=== PATIENT | male | born 1995 | race Two or more races ===

== ENCOUNTER 2024-04-25 16:05 | Inpatient (IN) | payer MEDICAID, OTHER ==
[~2024-04-25] VITALS: Ht 177.8 cm; Wt 65.7 kg
--- NOTE | 2024-04-25 16:21 | ED.PDOC ---
History of Present Illness HPI Comments 29-year-old male with no reported PMHx brought in by EMS presents with a chief complaint of dog bites to left lower leg x 1 hour ago. Per EMS, patient was attempting to put his neighbors dogs back into their yard when he was attacked by 5 of them. Patient was complaining of 10/10 left lower calf pain and was given 50mcg Fentanyl x 2 by EMS en route. Patient is still reporting pain despite the Fentanyl. Patient is currently hypotensive on arrival at 117/72. Patient has wounds bandaged and cleaned up from EMS. Chief Complaint: Animal Bite Time Seen by MD: 16:05 Reviewed Notes: Medications, Allergies Allergies: Coded Allergies: NO KNOWN ALLERGIES (Unverified , 04/25/24) Information Source: Emergency Med Personnel Mode of Arrival: EMS Severity: Moderate Timing: Minutes Duration: Since onset Prehospital treatment: Treatment (WOUND CLEANED AND BANDAGED) Past Medical History PAST MEDICAL HISTORY: Denies Surgical History: Denies all surgeries Family History Family History: Reviewed,noncontributory to illness Social History Smoker: Non-Smoker Alcohol: Denies ETOH Use Drugs: Denies Drug Use Lives In: Home Constitutional: denies: chills, diaphoresis, fatigue, fever, malaise, sweats, weakness, others EENTM: denies: blurred vision, double vision, ear bleeding, ear discharge, ear drainage, ear pain, ear ringing, eye pain, eye redness, hearing loss, mouth pain, mouth swelling, nasal discharge, nose bleeding, nose congestion, nose pain, photophobia, tearing, throat pain, throat swelling, voice changes, others Respiratory: denies: cough, hemoptysis, orthopnea, SOB at rest, shortness of breath, SOB with excertion, stridor, wheezing, others Cardiovascular: denies: chest pain, dizzy spells, diaphoresis, Dyspnea on exertion, edema, irregular heart beat, left arm pain, lightheadedness, palpitations, PND, syncope, others Gastrointestinal: denies: abdomen distended, abdominal pain, blood streaked bowels, constipated, diarrhea, dysphagia, difficulty swallowing, hematemesis, melena, nausea, poor appetite, poor fluid intake, rectal bleeding, rectal pain, vomiting, others Genitourinary: denies: burning, dysuria, flank pain, frequency, hematuria, incontinence, penile discharge, penile sore, pain, testicle pain, testicle swelling, urgency, others Neurological: denies: dizziness, fainting, headache, left sided numbness, left sided weakness, numbness, paresthesia, pre-existing deficit, right sided numbness, right sided weakness, seizure, speech problems, tingling, tremors, weakness, others Musculoskeletal: denies: back pain, gout, joint pain, joint swelling, muscle pain, muscle stiffness, neck pain, others Integumetry: reports: laceration, wounds; denies: bruises, change in color, change in hair/nails, dryness, lesions, lumps, rash, others Allergic/Immunocompromised: denies: Difficulty Healing, Frequent Infections, Hives, Itching, others Hematologic/Lymphatic: denies: anemia, blood clots, easy bleeding, easy bruis ing, swollen glands, others Endocrine: denies: excessive hunger, excessive sweating, excessive thirst, exc essive urination, flushing, intolerance to cold, intolerance to heat, unexplained weight gain, unexplained weight loss, others Psychiatric: denies: anxiety, bipolar disorder, depression, hopeless, panic disorder, schizophrenia, sleepless, suicidal, others All Other Systems: Reviewed and Negative Physical Exam General Appearance: Severe Distress, Thin HEENT: NOT DONE Neck: NOT DONE Respiratory: Chest Non-Tender, Decreased Breath Sounds, Lungs Clear, No Accessory Muscle Use Cardiovascular: No Murmur, No Gallop, Normal Peripheral Pulses, Regular Rate/Rhythm Breast Exam: Deferred Gastrointestinal: Non Tender, Soft Genitalia: Deferred Pelvic: Deferred Rectal: Deferred Extremities: Tender, Other (ANIMAL BITES TO LEFT LOWER CALF) Neurologic: Alert, Normal Affect, No Sensory Deficits Cerebellar Function: NOT DONE Reflexes: NOT DONE Skin: Dry, Lacerations Lymphatic: No Adenopathy Was a procedure done? Was a procedure done?: No Differential Dx Considerations may include: Fracture, foreign body retention, dog bite, cellulitis X-Ray, Labs, Meds, VS Vital Signs Date Time Temp Pulse Resp B/P (MAP) Pulse Ox O2 Delivery O2 Flow Rate FiO2 04/25/24 17:41 98.4 96 22 111/69 (83) 95 98.4 04/25/24 17:12 93 19 98/63 04/25/24 16:42 93 22 116/72 04/25/24 16:11 98.3 102 22 117/72 (87) 96 Lab Test 04/25/24 16:38 Range/Units White Blood Count 13.5 H 4.4-10.8 10^3/uL Red Blood Count 4.91 4.5-5.90 10^6/uL Hemoglobin 15.2 13.5-17.5 g/dL Hematocrit 46.6 41.0-53.0 % Mean Corpuscular Volume 94.9 80.0-100.0 fL Mean Corpuscular Hemoglobin 30.9 28.0-32.0 pg Mean Corpuscular Hemoglobin Concent 32.6 32.0-36.0 g/dL Red Cell Distribution Width 13.3 11.8-14.3 % Platelet Count 288 140-450 10^3/uL Mean Platelet Volume 8.3 6.9-10.8 fL Neutrophils (%) (Auto) 46.4 37.0-80.0 % Lymphocytes (%) (Auto) 44.1 10.0-50.0 % Monocytes (%) (Auto) 7.4 0.0-12.0 % Eosinophils (%) (Auto) 1.7 0.0-7.0 % Basophils (%) (Auto) 0.4 0.0-2.0 % Neutrophils # (Auto) 6.3 1.6-8.6 10 ^3/uL Lymphocytes # (Auto) 5.9 H 0.4-5.4 10 ^3/uL Monocytes # (Auto) 1.0 0-1.3 10 ^3/uL Eosinophils # (Auto) 0.2 0-0.8 10 ^3/uL Basophils # (Auto) 0.1 0-0.2 10 ^3/uL Nucleated Red Blood Cells 0.2 % Sodium Level 142 136-145 mmol/L Potassium Level 3.8 3.5-5.1 mmol/L Chloride Level 108 H 98-107 mmol/L Carbon Dioxide Level 18 L 20-31 mmol/L Anion Gap 16 H 5-15 Blood Urea Nitrogen 12 9-23 mg/dL Creatinine 1.29 0.700-1.30 mg/dL Glomerular Filtration Rate Calc 76 >90 mL/min BUN/Creatinine Ratio 9.3 L 10.0-20.0 Serum Glucose 90 74-106 mg/dL Calcium Level 9.8 8.7-10.4 mg/dL Total Bilirubin 0.5 0.2-1.0 mg/dL Aspartate Amino Transferase (AST) 17 13-40 U/L Alanine Aminotransferase (ALT) 17 7-40 U/L Alkaline Phosphatase 67 46-116 U/L Total Protein 7.4 5.7-8.2 g/dL Albumin 4.7 3.2-4.8 g/dL Current Medications Medications (Trade) Dose Ordered Sig/Winter Route Start Time Stop Time Status Last Admin Cefazolin Sodium 50 ml @ 100 mls/hr ONCE ONCE IV 04/25/24 16:30 04/25/24 16:59 DC 04/25/24 16:47 Hydromorphone HCl (Dilaudid Injection) 0.5 mg ONCE ONCE IV 04/25/24 16:45 04/25/24 16:46 DC 04/25/24 16:42 Ondansetron HCl (Zofran) 4 mg ONCE ONCE IV 04/25/24 16:45 04/25/24 16:46 DC 04/25/24 16:42 Bacitracin 5 applic ONCE ONCE TOP 04/25/24 17:15 04/25/24 17:16 DC 04/25/24 17:20 Sodium Chloride 1,000 ml @ 1,000 mls/hr Q1H ONCE IV 04/25/24 17:30 04/25/24 18:29 04/25/24 17:31 Sodium Chloride 1,000 ml @ 1,000 mls/hr Q1H ONCE IV 04/25/24 17:30 04/25/24 18:29 04/25/24 17:20 X-Ray, Labs, Meds, VS Comment Imaging: X-rays and CT scans were reviewed and interpreted by this provider, imaging shows no fractures and no pathological disease. Pending radiology review. Laboratory: Labs reviewed and interpreted by this provider. No significant abnormalities noted. Patient has prior medical visits reviewed. Med reconciliation performed Vital signs reviewed Patient will be admitted for pain control Patient was started on Ancef 1 g Given Dilaudid 0.5 Given Ativan 1 mg Time of 1ST Reevaluation: 16:35 Reevaluation 1ST: Unchanged Patient Education/Counseling: Diagnosis, Treatment, Prognosis Family Education/Counseling: Diagnosis, Treatment, Prognosis Departure 1 Departure Time of Disposition: 17:49 Impression: Primary Impression: Dog bite Qualified Codes: W54.0XXA - Bitten by dog, initial encounter Disposition: ADMITTED INPATIENT Condition: Stable Discharged With: Self Critical Care Note Critical Care Time?: No Stability Stability form required: No Heart Score Heart Score: Heart Score Response (Comments) Value History N/A 0 EKG N/A 0 Age N/A 0 Risk Factors N/A 0 Troponin N/A 0 Total 0 I personally scribed for KYLE PERRY ([email or web address]) on 04/25/24 at 16:21. Electronically submitted by Jose Dewey ([email or web address]). KYLE PERRY Apr 25, 2024 16:21
--- NOTE | 2024-04-25 16:41 | DVH ---
CLINICAL INDICATION: dog bite TECHNIQUE: 4 view left XY L TIB FIB XRAY Comparison: None FINDINGS/IMPRESSION: : There is no evidence of acute fracture or dislocation. Soft tissues are unremarkable.
[2024-04-25] MEDS: HYDROmorphone HCL 2 MG/ML VL/or syr IV ONE (16:42)
[2024-04-25] MEDS: ONDANSETRON HCL 4 MG/2 ML VIAL IV ONE (16:42)
[2024-04-25] MEDS: ceFAZolin 1GM/50ML 50 ML IV ONE (16:47)
[2024-04-25 16:54] LABS: Basophils # (auto) 0.1 10 ^3/uL (0-0.2); Basophils % (auto) 0.4 % (0.0-2.0); Eosinophils # (auto) 0.2 10 ^3/uL (0-0.8); Eosinophils % (auto) 1.7 % (0.0-7.0); Hematocrit 46.6 % (41.0-53.0); Hemoglobin 15.2 g/dL (13.5-17.5); Lymphocytes # (auto) 5.9 10 ^3/uL (0.4-5.4); Lymphocytes % (auto) 44.1 % (10.0-50.0); Mean Corpuscular Hemoglobin 30.9 pg (28.0-32.0); Mean Corpuscular Hgb Conc. 32.6 g/dL (32.0-36.0); Mean Corpuscular Volume 94.9 fL (80.0-100.0); Monocytes % (auto) 7.4 % (0.0-12.0); Neutrophils # (auto) 6.3 10 ^3/uL (1.6-8.6); Neutrophils % (auto) 46.4 % (37.0-80.0); Nucleated Red Blood Cells % 0.2 %; Platelet Count (auto) 288 10^3/uL (140-450); Red Blood Cells 4.91 10^6/uL (4.5-5.90); Red Cell Distribution Width 13.3 % (11.8-14.3); White Blood Cell 13.5 10^3/uL (4.4-10.8)
[2024-04-25 17:07] LABS: Alanine Aminotransferase 17 U/L (7-40); Albumin 4.7 g/dL (3.2-4.8); Alkaline Phosphatase 67 U/L (46-116); Anion Gap 16 (5-15); Aspartate Aminotransferase 17 U/L (13-40); BUN/Creatinine Ratio 9.3 (10.0-20.0); Bilirubin, Total 0.5 mg/dL (0.2-1.0); Blood Urea Nitrogen 12 mg/dL (9-23); Calcium 9.8 mg/dL (8.7-10.4); Glucose 90 mg/dL (74-106); Potassium 3.8 mmol/L (3.5-5.1); Sodium 142 mmol/L (136-145)
[2024-04-25 17:08] LABS: Carbon Dioxide 18 mmol/L (20-31); Chloride 108 mmol/L (98-107); Total Protein 7.4 g/dL (5.7-8.2)
[2024-04-25] MEDS: BACITRACIN TOP OINT 1 UD PKG TOP ONE (17:20)
[2024-04-25] MEDS: SODIUM CHLORIDE 0.9% 1,000 ML IV ONE ×3 (17:20→20:37)
[2024-04-25 17:44] VITALS: PULSE 93; RESP 20; O2SAT 98
[2024-04-25] MEDS: LORazepam 2MG/ML-1ML VIAL IV ONE (17:57)
[2024-04-25 19:30] VITALS: PULSE 81; RESP 12; O2SAT 94
[2024-04-25] MEDS ORDERED: ACETAMINOPHEN 325 MG TAB PO PRN (21:30)
[2024-04-25] MEDS ORDERED: NITROGLYCERIN 0.4 MG SL TAB SL PRN (21:30)
[2024-04-25] MEDS: SODIUM CHLORIDE 0.9% 1,000 ML IV SCH (21:30)
[2024-04-25] MEDS ORDERED: MORPHINE SULFATE INJ 2 MG/ml SYRG IV PRN (21:30)
[2024-04-25] MEDS ORDERED: ONDANSETRON HCL 4 MG/2 ML VIAL IV PRN (21:30)
--- NOTE | 2024-04-25 21:46 | DVHHPRES ---
History of Present Illness Resident Creating Document: HOLLAND MCDONALD RESIDENT History of Present Illness Pradeep Fisher is a 29-year-old male with a PMH of asthma presented to the ED brought by EMS with a chief complaints of multiple multiple dog bites on left lower extremity and right upper extremity in in the afternoon on the day of admission. Patient was in the backyard, 5 ducts came from under the fence and then attacked on him. Patient has been having severe pain, bad wounds on both lower extremities and left upper extremity which brought him to visit ED. on my assessment patient denies fever, nausea, vomiting, chest pain, and other acute associated symptoms PMH: Asthma PSH: Denies Family history: Not significant Social history: Lives at home. Vapes and smokes marijuana. Denies alcohol. Former meth abuser Allergies: No known allergies Home medications: None Review of Systems Constitutional: No: Fever, Chills, Sweats, Weakness, Malaise, Other Eyes: No: Pain, Vision change, Conjunctivae inflammation, Eyelid inflammation, Other, Redness ENT: No: Ear pain, Ear discharge, Nose pain, Nose discharge, Nose congestion, Mouth pain, Mouth swelling, Throat pain, Throat swelling, Other Respiratory: No: Cough, Dry, Shortness of breath, SOB with excertion, Wheezing, Hemoptysis, Pleuritic Pain, Sputum, Wheezing, Other Cardiovascular: No: Chest Pain, Palpitations, Orthopnea, Paroxysmal Noc. Dyspnea, Edema, Lt Headedness, Other Gastrointestinal: No: Nausea, Vomiting, Abdominal Pain, Diarrhea, Constipation, Melena, Hematochezia, Other Genitourinary: No Dysuria, No Frequency, No Incontinence, No Hematuria, No Retention, No Other Musculoskeletal: other, back pain (Pain is due to multiple bite injury), hand pain, leg pain, foot pain Skin: Bruising, Other (Multiple lacerated, abrasions of dog bite mostly on LLE and mild abrasions on RLE and LUE, right buttock,) Allergies: Coded Allergies: NO KNOWN ALLERGIES (Unverified , 04/25/24) Medications Current Medications Medications Dose Ordered Sig/Winter Route Start Time Stop Time Status Last Admin Dose Admin Sodium Chloride 10 ml Q8HR IV 04/25/24 22:00 Sodium Chloride 1,000 ml @ 120 mls/hr Q8H20M IV 04/25/24 21:30 Ondansetron HCl 4 mg Q4HP PRN IV 04/25/24 21:30 Acetaminophen 650 mg Q6HP PRN PO 04/25/24 21:30 Morphine Sulfate 2 mg Q4HPRN PRN IV 04/25/24 21:30 Nitroglycerin 0.4 mg Q5MINP PRN SL 04/25/24 21:30 Morphine Sulfate 2 mg Q30M PRN IV 04/25/24 21:30 Ampicillin Sodium/ Sulbactam Sodium 3 gm/Sodium Chloride 100 ml @ 100 mls/hr Q6H IV 04/25/24 21:30 UNV Exam Vital Signs Vital Signs Date Time Temp Pulse Resp B/P (MAP) Pulse Ox O2 Delivery O2 Flow Rate FiO2 04/25/24 20:23 88 14 110/70 (83) 96 04/25/24 17:44 Room Air* 0 21 04/25/24 17:41 98.4 98.4 Exam Pt is lying on bed General Appearance: Alert, Oriented X3, Cooperative, severe distress HEENT: Atraumatic, Mucous membranes moist/pink Respiratory: Clear to auscultation, Normal air movement, No added sounds Cardiovascular: Regular rate, Normal S1, Normal S2, No murmurs Abdominal: Active bowel sounds, Soft, no distention, no tenderness Extremities and Skin: Multiple lacerated, abrasions of dog bite mostly on LLE and mild abrasions on RLE and LUE, right buttock, mildly swollen, tenderness, warmth Dorsalis pedis, posterior tibial artery pulses are 3+, sensation is intact, unable to move left ankle joint and fingers likely due to inflammation Neuro: Normal speech, sensorimotor deficits none Psych/Mental Status: Mental status NL, Mood NL Nurse was there as sharperone during examination Labs/Xrays Labs Test 04/25/24 16:38 Range/Units White Blood Count 13.5 H 4.4-10.8 10^3/uL Red Blood Count 4.91 4.5-5.90 10^6/uL Hemoglobin 15.2 13.5-17.5 g/dL Hematocrit 46.6 41.0-53.0 % Mean Corpuscular Volume 94.9 80.0-100.0 fL Mean Corpuscular Hemoglobin 30.9 28.0-32.0 pg Mean Corpuscular Hemoglobin Concent 32.6 32.0-36.0 g/dL Red Cell Distribution Width 13.3 11.8-14.3 % Platelet Count 288 140-450 10^3/uL Mean Platelet Volume 8.3 6.9-10.8 fL Neutrophils (%) (Auto) 46.4 37.0-80.0 % Lymphocytes (%) (Auto) 44.1 10.0-50.0 % Monocytes (%) (Auto) 7.4 0.0-12.0 % Eosinophils (%) (Auto) 1.7 0.0-7.0 % Basophils (%) (Auto) 0.4 0.0-2.0 % Neutrophils # (Auto) 6.3 1.6-8.6 10 ^3/uL Lymphocytes # (Auto) 5.9 H 0.4-5.4 10 ^3/uL Monocytes # (Auto) 1.0 0-1.3 10 ^3/uL Eosinophils # (Auto) 0.2 0-0.8 10 ^3/uL Basophils # (Auto) 0.1 0-0.2 10 ^3/uL Nucleated Red Blood Cells 0.2 % Sodium Level 142 136-145 mmol/L Potassium Level 3.8 3.5-5.1 mmol/L Chloride Level 108 H 98-107 mmol/L Carbon Dioxide Level 18 L 20-31 mmol/L Anion Gap 16 H 5-15 Blood Urea Nitrogen 12 9-23 mg/dL Creatinine 1.29 0.700-1.30 mg/dL Glomerular Filtration Rate Calc 76 >90 mL/min BUN/Creatinine Ratio 9.3 L 10.0-20.0 Serum Glucose 90 74-106 mg/dL Calcium Level 9.8 8.7-10.4 mg/dL Total Bilirubin 0.5 0.2-1.0 mg/dL Aspartate Amino Transferase (AST) 17 13-40 U/L Alanine Aminotransferase (ALT) 17 7-40 U/L Alkaline Phosphatase 67 46-116 U/L Total Protein 7.4 5.7-8.2 g/dL Albumin 4.7 3.2-4.8 g/dL Assessment/Plan Assessment/Plan # Cellulitis of left lower extremity due to Multiple dog bites # Multiple dog bites # Ruleout Sepsis # Rule out Muscular/tendon injury/rupture - wound consult and culture - clean the wound - currently on Unasyn - closely monitor - pain and anxiety management as needed - Administered rabies vaccine and rabies immunoglobulin along with tetanus toxoid - CT lower extremities shows foci of air tracking predominantly along the lateral subcutaneous tissue - consulted surgeon # Asthma not in exacerbation PUD PPX not need VTE PPX: hold Diet: Regular diet Goals of care discussed with the patient for more than 27 minutes: Full code status Case management discussed with Dr. Vazquez, patient and nurse Plan discussed with: Patient My Orders Orders - HOLLAND MCDONALD RESIDENT Procedure Category Date Status Time Admit ADMIT 04/25/24 Transmitted 21:20 Allergies MIRI 04/25/24 In Process 21:20 Code Status CODE 04/25/24 Transmitted 21:20 Sodium Chloride Lock PHA 04/25/24 In Process (Saline Lock Ns) 22:00 Sodium Chloride 0.9% PHA 04/25/24 In Process 21:30 Ondansetron Hcl PHA 04/25/24 In Process (Zofran) 21:30 Complete Blood Count LAB 04/26/24 Verified 04:00 Comprehensive LAB 04/26/24 Verified Metabolic Panel 04:00 Cardiac DIET 04/26/24 Transmitted Diet-2gna,Lofat,Lochol Breakfast Condition: Stable MIRI 04/25/24 In Process 21:20 Acetaminophen Tablet PHA 04/25/24 In Process (Tylenol Tablet) 21:30 Morphine Sulfate PHA 04/25/24 In Process Injection 21:30 Nitroglycerin PHA 04/25/24 In Process Sublingual (Ntrostat 21:30 Morphine Sulfate PHA 04/25/24 In Process Injection 21:30 Oxygen By Nasal RT 04/25/24 Transmitted Cannula 21:20 Stat Ekg For Chest MIRI 04/25/24 In Process Pain 21:20 Notify Md Of Changes MIRI 04/25/24 In Process From Base 21:20 Ampicillin & PHA 04/25/24 Logged Sulbactam Sodium 21:30 * Wound Consult CONS 04/25/24 Transmitted Wound Culture W/ Gs SHENA 04/25/24 Logged 21:27 Urinalysis LAB 04/25/24 Logged 21:36 Thyroid Stimulating LAB 04/25/24 Logged Hormone 21:36 Rapid Influenza A&B LAB 04/25/24 Logged 21:36 Magnesium LAB 04/25/24 Logged 21:36 Lactic Acid W/ Reflex LAB 04/25/24 Logged Order 21:36 Drug Screen LAB 04/25/24 Logged 21:36 D-Dimer LAB 04/25/24 Logged 21:36 Covid19 Antigen Ailyn LAB 04/25/24 Logged Complete Blood Count LAB 04/25/24 Logged 21:36 Date of Service: Apr 26, 2024 Billing Provider: PAWEL VAZQUEZ MD Common Visit Codes: [id number] INP/OBS CARE (HIGH) HOLLAND MCDONALD RESIDENT Apr 25, 2024 21:46 PAWEL VAZQUEZ MD Apr 26, 2024 08:41
[2024-04-25 22:29] LABS: Basophils # (auto) 0 10 ^3/uL (0-0.2); Basophils % (auto) 0.2 % (0.0-2.0); Eosinophils # (auto) 0 10 ^3/uL (0-0.8); Hematocrit 39.7 % (41.0-53.0); Hemoglobin 13.2 g/dL (13.5-17.5); Lymphocytes # (auto) 1.9 10 ^3/uL (0.4-5.4); Lymphocytes % (auto) 15.3 % (10.0-50.0); Mean Corpuscular Hemoglobin 31.1 pg (28.0-32.0); Mean Corpuscular Hgb Conc. 33.3 g/dL (32.0-36.0); Mean Corpuscular Volume 93.5 fL (80.0-100.0); Monocytes # (auto) 0.8 10 ^3/uL (0-1.3); Monocytes % (auto) 6.7 % (0.0-12.0); Neutrophils # (auto) 9.7 10 ^3/uL (1.6-8.6); Neutrophils % (auto) 77.8 % (37.0-80.0); Platelet Count (auto) 234 10^3/uL (140-450); Red Blood Cells 4.25 10^6/uL (4.5-5.90); Red Cell Distribution Width 13.4 % (11.8-14.3); White Blood Cell 12.5 10^3/uL (4.4-10.8)
[2024-04-25] MEDS: AMPICILLIN & SULBACTAM SODIUM 3 GM in SODIUM CHL 0.9% 100 ML IV SCH (22:55)
[2024-04-25] MEDS: TETANUS-DIPTH-ACEL PERTUSSIS 0.5ML SYR Tdap IM ONE (23:00)
[2024-04-25] MEDS: RABIES IMMUNE GLOBULIN 300unit/2ml (150unit/ml) INJ IM ONE (23:00)
[2024-04-25] MEDS: SODIUM CHLOR 0.9% PF (SALINE LOCK) 10ML VIAL/SYR IV SCH (23:02)
[2024-04-25] MEDS: MORPHINE SULFATE INJ 2 MG/ml SYRG IV PRN (23:11)
[2024-04-25] MEDS: RABIES VACCINE (PCEC)/PF 2.5 UNITS IM ONE (23:57)
--- NOTE | 2024-04-26 00:50 | DVH ---
EXAM: CT LEFT LOWER EXTREMITY W/O CON INDICATION: dog bite Exam Date: 04/25/2024 11:11 PM COMPARISON: None TECHNIQUE: CT of the left lower extremity without IV contrast administration RADIATION DOSE: CTDIvol: 7.75 mGy, DLP: 495.24 mGy*cm Findings/ IMPRESSION: Scattered foci of air tracking predominantly along the lateral subcutaneous tissue. No a cute fracture or dislocation.
[2024-04-26 01:32] LABS: COVID19 ANTIGEN SOFIA FIA NEGATIVE (NEGATIVE); Rapid Influenza A Negative (Negative); Rapid Influenza B Negative (Negative)
[2024-04-26] MEDS ORDERED: NITROGLYCERIN 0.4 MG SL TAB SL PRN (02:45)
[2024-04-26] MEDS ORDERED: MORPHINE SULFATE INJ 2 MG/ml SYRG IV PRN (02:45)
[2024-04-26 03:10] LABS: Urine Bacteria None Seen /hpf (None Seen)
[2024-04-26 03:32] LABS: Urine Blood Negative /uL (Negative); Urine Clarity Turbid (Clear); Urine Color Light-Yellow (Yellow); Urine Protein, UAD Negative (Negative); Urine Specific Gravity 1.019 (1.001-1.035); Urine Squamous Epithelial Cell FEW /hpf (<5); Urine Urobilinogen Normal (Negative); Urine WBC 1 /HPF (0-3); Urine pH 5.5 (5.0-9.0)
[2024-04-26 06:34] LABS: Basophils # (auto) 0 10 ^3/uL (0-0.2); Basophils % (auto) 0.2 % (0.0-2.0); Eosinophils # (auto) 0.1 10 ^3/uL (0-0.8); Eosinophils % (auto) 1.1 % (0.0-7.0); Hematocrit 37.5 % (41.0-53.0); Hemoglobin 12.5 g/dL (13.5-17.5); Lymphocytes # (auto) 2.7 10 ^3/uL (0.4-5.4); Lymphocytes % (auto) 32.2 % (10.0-50.0); Mean Corpuscular Hemoglobin 31.1 pg (28.0-32.0); Mean Corpuscular Hgb Conc. 33.3 g/dL (32.0-36.0); Mean Corpuscular Volume 93.6 fL (80.0-100.0); Monocytes # (auto) 0.9 10 ^3/uL (0-1.3); Monocytes % (auto) 10.6 % (0.0-12.0); Neutrophils # (auto) 4.7 10 ^3/uL (1.6-8.6); Neutrophils % (auto) 55.9 % (37.0-80.0); Nucleated Red Blood Cells % 0.1 %; Platelet Count (auto) 211 10^3/uL (140-450); Red Blood Cells 4.01 10^6/uL (4.5-5.90); Red Cell Distribution Width 13.1 % (11.8-14.3); White Blood Cell 8.4 10^3/uL (4.4-10.8)
[2024-04-26 07:01] LABS: Alanine Aminotransferase 14 U/L (7-40); Albumin 3.7 g/dL (3.2-4.8); Alkaline Phosphatase 53 U/L (46-116); Anion Gap 10 (5-15); Aspartate Aminotransferase 21 U/L (13-40); BUN/Creatinine Ratio 9.2 (10.0-20.0); Blood Urea Nitrogen 9 mg/dL (9-23); Calcium 8.7 mg/dL (8.7-10.4); Carbon Dioxide 21 mmol/L (20-31); Chloride 110 mmol/L (98-107); Glucose 86 mg/dL (74-106); Potassium 3.4 mmol/L (3.5-5.1); Sodium 141 mmol/L (136-145)
[2024-04-26 07:02] LABS: Bilirubin, Total 0.9 mg/dL (0.2-1.0); Total Protein 5.9 g/dL (5.7-8.2)
[2024-04-26 08:08] LABS: INR 1.09 (0.9-1.15); Partial Thromboplastin Time 27.4 SEC (24.5-34.5); Prothrombin Time 11.5 sec (9.3-11.8)
[2024-04-26] MEDS: POTASSIUM EFFERVESENT TAB 25 MEQ PO ONE (08:09)
--- NOTE | 2024-04-26 08:13 | DVHINCON2 ---
Consultation - Surgical Date Seen: Apr 26, 2024 Referring Physician Referring Physician Graham Reason for Consultation dog bite History of Present Illness History of Present Illness Pradeep Fisher is a 29-year-old male with a PMH of asthma presented to the ED brought by EMS with a chief complaints of multiple multiple dog bites on left lower extremity and right upper extremity in in the afternoon on the day of admission. Patient has been having severe pain, . on my assessment patient denies fever, nausea, vomiting, chest pain, and other acute associated symptoms injuries occured overy 18 hours ago. Past Medical/Surgical History Past Medical/Surgical History asthma Family and Social History Family and Social History none Allergies and medications Allergies: Coded Allergies: NO KNOWN ALLERGIES (Unverified , 04/25/24) Review of systems Review of Systems: HEENT:Normal, CVS:Normal, RESPIRATORY:Normal, GI:Normal, :Normal Examination Vital signs Vital Signs Date Time Temp Pulse Resp B/P (MAP) Pulse Ox O2 Delivery O2 Flow Rate FiO2 04/26/24 07:04 70 15 112/73 (86) 96 04/25/24 19:30 Room Air* 0 21 04/25/24 19:30 98.3 98.3 Medications Current Medications Medications (Trade) Dose Ordered Sig/Winter Route PRN Reason Start Time Stop Time Status Last Admin Sodium Chloride (Saline Lock Ns) 10 ml Q8HR IV 04/25/24 22:00 04/26/24 06:00 Sodium Chloride 1,000 ml @ 120 mls/hr Q8H20M IV 04/25/24 21:30 04/25/24 21:30 Ondansetron HCl (Zofran) 4 mg Q4HP PRN IV NAUSEA / VOMITING 04/25/24 21:30 Acetaminophen (Tylenol Tablet) 650 mg Q6HP PRN PO PAIN SCALE 1-3 OR TEMP>100.4 04/25/24 21:30 Morphine Sulfate 2 mg Q4HPRN PRN IV SEVERE PAIN (7-10 PAIN SCALE) 04/25/24 21:30 04/26/24 04:55 Nitroglycerin (Ntrostat Sublingual) 0.4 mg Q5MINP PRN SL FOR CHEST PAIN 04/25/24 21:30 Cancel Morphine Sulfate 2 mg Q30M PRN IV FOR CHEST PAIN 04/25/24 21:30 Cancel Ampicillin Sodium/ Sulbactam Sodium 3 gm/Sodium Chloride 100 ml @ 100 mls/hr Q6H IV 04/25/24 21:30 04/26/24 03:13 Nitroglycerin (Ntrostat Sublingual) 0.4 mg Q5MINP PRN SL FOR CHEST PAIN 04/26/24 02:45 04/26/24 07:26 DC Morphine Sulfate 2 mg Q30M PRN IV FOR CHEST PAIN 04/26/24 02:45 04/26/24 07:26 DC Laboratory Labs Test 04/26/24 06:00 04/26/24 02:47 04/26/24 00:45 04/25/24 22:09 Range/Units White Blood Count 8.4 # 4.4-10.8 10^3/uL Red Blood Count 4.01 L 4.5-5.90 10^6/uL Hemoglobin 12.5 L 13.5-17.5 g/dL Hematocrit 37.5 L 41.0-53.0 % Mean Corpuscular Volume 93.6 80.0-100.0 fL Mean Corpuscular Hemoglobin 31.1 28.0-32.0 pg Mean Corpuscular Hemoglobin Concent 33.3 32.0-36.0 g/dL Red Cell Distribution Width 13.1 11.8-14.3 % Platelet Count 211 140-450 10^3/uL Mean Platelet Volume 8.4 6.9-10.8 fL Neutrophils (%) (Auto) 55.9 37.0-80.0 % Lymphocytes (%) (Auto) 32.2 10.0-50.0 % Monocytes (%) (Auto) 10.6 0.0-12.0 % Eosinophils (%) (Auto) 1.1 0.0-7.0 % Basophils (%) (Auto) 0.2 0.0-2.0 % Neutrophils # (Auto) 4.7 1.6-8.6 10 ^3/uL Lymphocytes # (Auto) 2.7 0.4-5.4 10 ^3/uL Monocytes # (Auto) 0.9 0-1.3 10 ^3/uL Eosinophils # (Auto) 0.1 0-0.8 10 ^3/uL Basophils # (Auto) 0 0-0.2 10 ^3/uL Nucleated Red Blood Cells 0.1 % Sodium Level 141 136-145 mmol/L Potassium Level 3.4 L 3.5-5.1 mmol/L Chloride Level 110 H 98-107 mmol/L Carbon Dioxide Level 21 20-31 mmol/L Anion Gap 10 5-15 Blood Urea Nitrogen 9 9-23 mg/dL Creatinine 0.98 0.700-1.30 mg/dL Glomerular Filtration Rate Calc 106 >90 mL/min BUN/Creatinine Ratio 9.2 L 10.0-20.0 Serum Glucose 86 74-106 mg/dL Calcium Level 8.7 8.7-10.4 mg/dL Total Bilirubin 0.9 0.2-1.0 mg/dL Aspartate Amino Transferase (AST) 21 13-40 U/L Alanine Aminotransferase (ALT) 14 7-40 U/L Alkaline Phosphatase 53 46-116 U/L Total Protein 5.9 5.7-8.2 g/dL Albumin 3.7 3.2-4.8 g/dL Urine Color Light-yellow Yellow Urine Clarity Turbid H Clear Urine pH 5.5 5.0-9.0 Urine Specific Flora 1.019 1.001-1.035 Urine Protein Negative Negative Urine Ketones 1+ H Negative Urine Blood Negative Negative /uL Urine Nitrite Negative Negative Urine Bilirubin Negative Negative Urine Urobilinogen Normal Negative mg/dL Urine Leukocyte Esterase Negative Negative /uL Urine RBC <1 0 - 3 /hpf Urine Microscopic WBC 1 0-3 /HPF Urine Squamous Epithelial Cells Few <5 /hpf Urine Uric Acid Crystals Mod None Seen /hpf Urine Bacteria None seen None Seen /hpf Urine Glucose Normal Normal mg/dL Influenza Type A Antigen Negative Negative Influenza Type B Antigen Negative Negative SARS-CoV-2 Antigen (Rapid) Negative NEGATIVE D-Dimer, Quantitative 0.85 H 0.0-0.49 mg/L FEU Lactic Acid Level 0.7 0.4-2.0 mmol/L Test 04/25/24 16:38 Range/Units Magnesium Level 3.0 H 1.6-2.6 mg/dL Thyroid Stimulating Hormone (TSH) 1.30 0.55-4.78 uIU/mL Examination: GENERAL:Normal, HEENT:Normal, NECK:Normal, LUNGS:Abnormal, CVS:Abnormal, ABDOMEN:Abnormal, MSK:Normal (Multiple deep puncture wounds of the left leg. no active bleeding. no cellulitis) Problem List/Assessment/Plan Problems: (1) Dog bite Assessment and Plan 29 y with dog bites to left leg Due to the timing of over 18 hours and no active bleeding recommend not closing wounds at this time and treating with IV antibiotics and local wound care. Plan discussed with Plan discussed with: Patient Visit Coding Surgery Date of Service if different f: Apr 26, 2024 Billing Provider: BRIGHT CM Jr., MD Surgery Visit Codes: [id number] - INP CONSULT <80 MIN BRIGHT CM Jr., MD Apr 26, 2024 08:13
[2024-04-26 08:15] VITALS: PULSE 90; RESP 15; O2SAT 98
[2024-04-26] MEDS ORDERED: VANCOMYCIN PER PHARMACY 0 MG IV SCH (08:15)
[2024-04-26] MEDS: MEROPENEM 1GM IVPB 50 ML IV ONE (08:59)
[2024-04-26] MEDS ORDERED: VANCOMYCIN 1.5GM/300ML 300 ML IV ONE (09:00)
[2024-04-26] MEDS: CLINDAMYCIN 300MG IV 50 ML IV ONE (09:53)
[2024-04-26] MEDS: MORPHINE SULFATE INJ 2 MG/ml SYRG IV ONE (10:58)
[2024-04-26] MEDS: VANCOMYCIN 1.5GM/250ML 250 ML IV ONE (11:00)
[2024-04-26] MEDS ORDERED: CLINDAMYCIN 600MG IV 50 ML IV SCH (14:00)
[2024-04-26] MEDS ORDERED: MEROPENEM 1GM IVPB 50 ML IV SCH (14:00)
--- NOTE | 2024-04-26 15:03 | DVHPNRES ---
Progress Note Date Seen: Apr 26, 2024 Resident Creating Document: JANIA FATIMA RESIDENT Medical Necessity Reason Pt with a Central, PICC or Fol: No Subjective Review of Systems Patient is a 29-year-old male with past medical history of asthma, who came to the ED after being attacked by 5 dogs. According to the patient, yesterday on 04/25/2024 around 3:00 p.m. in the afternoon he got attacked by his neighbor's dogs and sustained animal bite wounds to the left foot, left leg, left hand, left arm and right buttock. CT scan of the foot showed scattered foci of air tracking predominantly along the lateral subcutaneous tissue. Patient was started on IV vancomycin and IV meropenem. Past surgical history: Denies Home medications: None Past Hospitalization: Denies Social & Personal history: Patient lives alone. Uses tobacco vape for the last 3 years. Drinks alcohol every day 2-3 drinks per day. Uses marijuana off and on. Allergies: Denies Patient seen and examined at bedside. Patient is alert and oriented to time, place person and responding to all questions. General: Chills Eyes: No Pain, No Vision change, No Conjunctivae inflammation, No Eyelid inflammation, No Other, No Redness ENT: No Ear pain, No Ear discharge, No Nose pain, No Nose discharge, No Nose congestion, No Mouth pain, No Mouth swelling, No Throat pain, No Throat swelling, No Other Cardiovascular: No Chest Pain, No Palpitations, No Orthopnea, No Paroxysmal No Dyspnea, No Edema, No Lt Headedness, No Other Respiratory: Cough, No Dry, No Shortness of breath, No SOB with exertion, No Wheezing, No Hemoptysis, No Pleuritic Pain, No Sputum, No Other Gastrointestinal: No Nausea, No Vomiting, No Abdominal Pain, No Diarrhea, No Constipation, No Melena, No Hematochezia, No Other Genitourinary: No Dysuria, No Frequency, No Incontinence, No Hematuria, No Retention, No Other Musculoskeletal: No other, No neck pain, No shoulder pain, No arm pain, No back pain, No hand pain, No leg pain, No foot pain Skin: No Rash, No Lesions, No Jaundice, No Bruising, No Other Objective vital signs Vital Sign Date Time Temp Pulse Resp B/P (MAP) Pulse Ox O2 Delivery O2 Flow Rate FiO2 04/26/24 12:29 89 13 111/67 04/26/24 10:25 96 04/26/24 08:15 Room Air* 0 21 04/26/24 08:13 98.0 98.0 Total Intake and Output 04/25/24 04/25/24 04/26/24 15:00 23:00 07:00 Intake Total 2230 ml 580 ml Balance 2230 ml 580 ml medications Current Medications Medications Dose Ordered Sig/Winter Route Start Time Stop Time Status Last Admin Dose Admin Sodium Chloride 10 ml Q8HR IV 04/25/24 22:00 04/26/24 06:00 10 ML Sodium Chloride 1,000 ml @ 120 mls/hr Q8H20M IV 04/25/24 21:30 04/26/24 08:00 120 MLS/HR Ondansetron HCl 4 mg Q4HP PRN IV 04/25/24 21:30 Acetaminophen 650 mg Q6HP PRN PO 04/25/24 21:30 Morphine Sulfate 2 mg Q4HPRN PRN IV 04/25/24 21:30 04/26/24 09:47 2 MG Nitroglycerin 0.4 mg Q5MINP PRN SL 04/25/24 21:30 Cancel Morphine Sulfate 2 mg Q30M PRN IV 04/25/24 21:30 Cancel Vancomycin HCl 0 ml @ 0 mls/hr UD IV 04/26/24 08:15 Vancomycin HCl 100 ml @ 100 mls/hr Q8H IV 04/26/24 19:00 Meropenem 50 ml @ 17 mls/hr Q8H IV 04/26/24 17:00 Examination General Appearance: Cooperative. Well developed. Well nourished. NAD Head Exam: Normal inspection Neck Exam: Normal inspection. Non-tender. Normal alignment Pulmonary/Respiratory: Chest non-tender. Clear bilateral breath sounds, no crackles, no wheezing. Cardiovascular/Chest: Regular rate and rhythm. No murmurs. No JVD. Peripheral Pulses: 2+ Radial (R). 2+ Radial (L). 2+ Pedal (R). 2+ Pedal (L) Abdominal Exam: Normal bowel sounds. Soft. normal abdomen, no visible veins, Nontender. No hepatospenomegaly. No masses Lower extremities: Multiple bite wounds noted on the left lower extremity, with the deepest one along the left lateral malleolus and anterior shearer Neuro/Mental Status: A&O x4. Coherent. Thoughts/Psych: Normal thought pattern. Appropriate mood and affect. Good judgement and insight Skin Exam: Normal inspection. Normal color. Warm. Dry laboratory and microbiology Laboratory Tests 04/26/24 06:00 Test 04/26/24 06:00 Range/Units Serum Glucose 86 74-106 mg/dL Labs and/or images reviewed: Labs reviewed by me, Image(s) reviewed by me Problem List/Assessment/Plan Problem List/Assessment/Plan Multiple dog bites Left lower extremity cellulitis likely secondary to animal bite Ruling out muscular injury/rupture; patient unable to dorsiflex and sukhdeep the affected foot - left tibia fibula x-ray: There is no evidence of acute fracture dislocation. Soft tissues are unremarkable. - left lower extremity CT: Scattered foci of air tracking predominantly along the lateral subcutaneous tissue. No fracture dislocation. - IV NS at 120 cc/hour - rabies vaccine, tetanus vaccine - IV vancomycin per pharmacy, IV meropenem - acetaminophen as needed for mild pain, morphine 2 mg as needed for severe pain, IV Dilaudid 0.25 mg as needed for severe pain - consulted surgery, they recommended not closing wounds at this time and treated with IV antibiotics and local wound care - wound consult Asthma, currently not in exacerbation Goals of care: Full code, discussed for >16 minutes on 04/26/2024 Plan discussed with patient Plan discussed with Dr. Lezama Plan discussed with: Patient, Other (RN) My Orders My Orders Orders - JANIA FATIMA RESIDENT Procedure Category Date Status Time Mri L Foot Wo Contrast MRI 04/26/24 Logged 14:24 Date of Service: Apr 26, 2024 Billing Provider: GIOVANNI LEZAMA MD Common Visit Codes: [id number] INP/OBS CARE(HIGH) JANIA FATIMA Apr 26, 2024 15:03 GIOVANNI LEZAMA MD Apr 26, 2024 16:24
[2024-04-26 16:09] LABS: Opiate Scree,Urine Neg (NEGATIVE)
[2024-04-26 16:14] LABS: Amphetamine Screen, Urine Pos (NEGATIVE); Barbiturate Scree,Urine Neg (NEGATIVE); Benzodiazephine Screen, Urine Neg (NEGATIVE); Cannabinoid Screen, Urine Pos (NEGATIVE); Cocaine Screen, Urine Neg (NEGATIVE); Phencyclidine Screen, Urine Neg (NEGATIVE)
[2024-04-26] MEDS: MORPHINE SULFATE INJ 2 MG/ml SYRG IV PRN (16:35)
[2024-04-26] MEDS: MEROPENEM 1GM IVPB 50 ML IV SCH (17:48)
[2024-04-26 19:45] VITALS: PULSE 80; RESP 18; O2SAT 95
--- NOTE | 2024-04-26 19:51 | DVH ---
EXAM: MRI MRI L FOOT WO CONTRAST HISTORY: dog bite extensive wound w crepitus COMPARISON: None TECHNIQUE: Multiplanar, multisequence MRI of the left foot was performed. FINDINGS: Moderate dorsal and lateral foot subcutaneous edema with suggestion of air foci which extend to subcu taneous tissues of the lateral malleolus. No drainable fluid collection in this unenhanced study. The visualized osseous structures demonstrate normal cortical and bone marrow signal intensity withou t evidence of fracture, trabecular bony injury, or dislocation. Hallux sesamoid complex is intact. The Lisfranc ligament is intact. The visualized portions of tibialis posterior, flexor hallucis longus, and flexor digitorum tendons a re intact. Visualized portions of peroneus longus and brevis tendons are intact. Visualized portion s of the tibialis anterior, extensor digitorum, and extensor hallucis tendons are intact. The partially visualized plantar fascia is intact. There is no evidence of intermetatarsal bursitis or Carrion's neuroma. No significant muscle atrophy is noted. IMPRESSION: 1. Subcutaneous edema and air on dorsal aspect of the foot and lateral malleolus. Please note that CT scan is superior to MRI for evaluation of soft tissue gas. No evidence of acute osseous abnormality or drainable fluid collection in this unenhanced study.
[2024-04-26] MEDS: VANCOMYCIN 750MG KIT 100 ML IV SCH (21:50)
[2024-04-27] VITALS (10 sets, daily range): BP systolic 92–135; BP diastolic 53–86; PULSE 63–85; RESP 16–18; TEMP 98–99.7; O2SAT 95–100
[2024-04-27 03:30] LABS: Basophils # (auto) 0 10 ^3/uL (0-0.2); Basophils % (auto) 0.4 % (0.0-2.0); Eosinophils # (auto) 0.3 10 ^3/uL (0-0.8); Eosinophils % (auto) 3.8 % (0.0-7.0); Hematocrit 37.1 % (41.0-53.0); Hemoglobin 12.4 g/dL (13.5-17.5); Lymphocytes % (auto) 39.6 % (10.0-50.0); Mean Corpuscular Hemoglobin 31.1 pg (28.0-32.0); Mean Corpuscular Hgb Conc. 33.5 g/dL (32.0-36.0); Mean Corpuscular Volume 92.9 fL (80.0-100.0); Monocytes # (auto) 0.8 10 ^3/uL (0-1.3); Monocytes % (auto) 10.9 % (0.0-12.0); Neutrophils # (auto) 3.4 10 ^3/uL (1.6-8.6); Neutrophils % (auto) 45.3 % (37.0-80.0); Nucleated Red Blood Cells % 0.1 %; Platelet Count (auto) 206 10^3/uL (140-450); Red Blood Cells 3.99 10^6/uL (4.5-5.90); Red Cell Distribution Width 12.8 % (11.8-14.3); White Blood Cell 7.6 10^3/uL (4.4-10.8)
[2024-04-27 03:31] LABS: Anion Gap 8 (5-15); Carbon Dioxide 23 mmol/L (20-31); Sodium 139 mmol/L (136-145)
[2024-04-27 03:32] LABS: Calcium 8.8 mg/dL (8.7-10.4)
[2024-04-27 03:37] LABS: BUN/Creatinine Ratio 5.6 (10.0-20.0); Blood Urea Nitrogen < 5 mg/dL (9-23); Chloride 108 mmol/L (98-107); Glucose 103 mg/dL (74-106)
[2024-04-27] MEDS: HYDROMORPHONE HCL 1 MG/ML INJ IV PRN (03:57)
[2024-04-27] MEDS: VANCOMYCIN 750MG KIT 100 ML IV SCH (06:10)
[2024-04-27] MEDS ORDERED: KETOROLAC TROMETH 30 MG/ML 1ML VIAL IV ONE (09:00)
[2024-04-27] MEDS: MORPHINE SULFATE 4 MG/ML SYR/VIAL IV PRN (09:25)
[2024-04-27] MEDS: RABIES IMMUNE GLOBULIN 300unit/2ml (150unit/ml) INJ IM ONE (13:00)
[2024-04-27] MEDS: IBUPROFEN 400 MG TAB PO SCH (14:00)
[2024-04-27] MEDS: ACETAMINOPHEN 325 MG TAB PO SCH (14:00)
--- NOTE | 2024-04-27 20:06 | DVHPNRES ---
Progress Note Date Seen: Apr 27, 2024 Resident Creating Document: JANIA FATIMA RESIDENT Medical Necessity Reason Pt with a Central, PICC or Fol: No Subjective Review of Systems Patient is a 29-year-old male with past medical history of asthma, who came to the ED after being attacked by 5 dogs. According to the patient, yesterday on 04/25/2024 around 3:00 p.m. in the afternoon he got attacked by his neighbor's dogs and sustained animal bite wounds to the left foot, left leg, left hand, left arm and right buttock. CT scan of the foot showed scattered foci of air tracking predominantly along the lateral subcutaneous tissue. Patient was started on IV vancomycin and IV meropenem. Past surgical history: Denies Home medications: None Past Hospitalization: Denies Social & Personal history: Patient lives alone. Uses tobacco vape for the last 3 years. Drinks alcohol every day 2-3 drinks per day. Uses marijuana off and on. Allergies: Denies Patient seen and examined at bedside. Patient is alert and oriented to time, place person and responding to all questions. More movement noted in the toes compared to yesterday. Objective vital signs Vital Sign Date Time Temp Pulse Resp B/P (MAP) Pulse Ox O2 Delivery O2 Flow Rate FiO2 04/27/24 17:00 98.0 63 18 93/53 (66) 99 98.0 04/27/24 08:30 Room Air* 0 21 Total Intake and Output 04/26/24 04/26/24 04/27/24 15:00 23:00 07:00 Intake Total 1310 ml 477 ml 910 ml Output Total 1050 ml Balance 1310 ml 477 ml -140 ml medications Current Medications Medications Dose Ordered Sig/Winter Route Start Time Stop Time Status Last Admin Dose Admin Sodium Chloride 10 ml Q8HR IV 04/25/24 22:00 04/27/24 14:41 10 ML Sodium Chloride 1,000 ml @ 120 mls/hr Q8H20M IV 04/25/24 21:30 04/26/24 22:46 120 MLS/HR Ondansetron HCl 4 mg Q4HP PRN IV 04/25/24 21:30 Acetaminophen 650 mg Q6HP PRN PO 04/25/24 21:30 Nitroglycerin 0.4 mg Q5MINP PRN SL 04/25/24 21:30 Cancel Morphine Sulfate 2 mg Q30M PRN IV 04/25/24 21:30 Cancel Vancomycin HCl 0 ml @ 0 mls/hr UD IV 04/26/24 08:15 Meropenem 50 ml @ 17 mls/hr Q8H IV 04/26/24 17:00 04/27/24 18:34 17 MLS/HR Vancomycin HCl 100 ml @ 100 mls/hr Q8H IV 04/27/24 06:00 04/27/24 14:40 100 MLS/HR Acetaminophen 650 mg Q8HR PO 04/27/24 14:00 Ibuprofen 400 mg Q8HR PO 04/27/24 14:00 Morphine Sulfate 4 mg Q6HPRN PRN IV 04/27/24 09:00 04/27/24 14:43 4 MG Examination General Appearance: Cooperative. Well developed. Well nourished. NAD Head Exam: Normal inspection Neck Exam: Normal inspection. Non-tender. Normal alignment Pulmonary/Respiratory: Chest non-tender. Clear bilateral breath sounds, no crackles, no wheezing. Cardiovascular/Chest: Regular rate and rhythm. No murmurs. No JVD. Peripheral Pulses: 2+ Radial (R). 2+ Radial (L). 2+ Pedal (R). 2+ Pedal (L) Abdominal Exam: Normal bowel sounds. Soft. normal abdomen, no visible veins, Nontender. No hepatospenomegaly. No masses Lower extremities: Multiple bite wounds noted on the left lower extremity, with the deepest one along the left lateral malleolus and anterior shearer Neuro/Mental Status: A&O x4. Coherent. Thoughts/Psych: Normal thought pattern. Appropriate mood and affect. Good judgement and insight Skin Exam: Normal inspection. Normal color. Warm. Dry laboratory and microbiology Laboratory Tests 04/27/24 02:59 Test 04/27/24 02:59 Range/Units Serum Glucose 103 74-106 mg/dL Microbiology Date/Time Source Procedure Growth Status 04/26/24 08:03 Blood Blood Culture - Preliminary NO GROWTH AFTER 24 HOURS OF INCUBATION. Resulted Labs and/or images reviewed: Labs reviewed by me, Image(s) reviewed by me Problem List/Assessment/Plan Problem List/Assessment/Plan Multiple dog bites Left lower extremity cellulitis likely secondary to animal bite Sepsis due to above Ruling out muscular injury/rupture; patient unable to dorsiflex and sukhdeep the affected foot - rabies vaccination, rabies immune globulin - tetanus shot - left tibia fibula x-ray: There is no evidence of acute fracture dislocation. Soft tissues are unremarkable. - left lower extremity CT: Scattered foci of air tracking predominantly along the lateral subcutaneous tissue. No fracture dislocation. - IV NS at 120 cc/hour - IV vancomycin per pharmacy, IV meropenem - acetaminophen as needed for mild pain, morphine 2 mg as needed for severe pain, IV Dilaudid 0.25 mg as needed for severe pain - consulted surgery, they recommended not closing wounds at this time and treated with IV antibiotics and local wound care - wound consult Asthma, currently not in exacerbation Polysubstance abuse - counseled Goals of care: Full code, discussed for >16 minutes on 04/26/2024 Plan discussed with patient Plan discussed with Dr. Lezama Plan discussed with: Patient, Other (RN) My Orders My Orders Orders - JANIA FATIMA RESIDENT Procedure Category Date Status Time Cover Wound With Dry MIRI 04/27/24 In Process Dressing 11:40 Apply: MIRI 04/27/24 In Process 11:40 Date of Service: Apr 27, 2024 Billing Provider: GIOVANNI LEZAMA MD Common Visit Codes: [id number] INP/OBS CARE(HIGH) JANIA FATIMA Apr 27, 2024 20:06 GIOVANNI LEZAMA MD Apr 29, 2024 16:04
[2024-04-28] VITALS (7 sets, daily range): BP systolic 99–122; BP diastolic 43–75; PULSE 60–86; RESP 16–18; TEMP 97.5–98.8; O2SAT 97–100
[2024-04-28 05:35] LABS: Basophils # (auto) 0 10 ^3/uL (0-0.2); Basophils % (auto) 0.6 % (0.0-2.0); Eosinophils # (auto) 0.3 10 ^3/uL (0-0.8); Eosinophils % (auto) 3.9 % (0.0-7.0); Hematocrit 38.4 % (41.0-53.0); Hemoglobin 13.1 g/dL (13.5-17.5); Lymphocytes % (auto) 40.8 % (10.0-50.0); Mean Corpuscular Hemoglobin 31.7 pg (28.0-32.0); Mean Corpuscular Hgb Conc. 34.1 g/dL (32.0-36.0); Monocytes # (auto) 0.9 10 ^3/uL (0-1.3); Monocytes % (auto) 11.5 % (0.0-12.0); Neutrophils # (auto) 3.2 10 ^3/uL (1.6-8.6); Neutrophils % (auto) 43.2 % (37.0-80.0); Platelet Count (auto) 233 10^3/uL (140-450); Red Blood Cells 4.13 10^6/uL (4.5-5.90); Red Cell Distribution Width 12.8 % (11.8-14.3); White Blood Cell 7.4 10^3/uL (4.4-10.8)
[2024-04-28 05:51] LABS: Anion Gap 7 (5-15); Carbon Dioxide 27 mmol/L (20-31); Chloride 105 mmol/L (98-107); Potassium 3.9 mmol/L (3.5-5.1); Sodium 139 mmol/L (136-145)
[2024-04-28 05:52] LABS: Calcium 9.5 mg/dL (8.7-10.4)
[2024-04-28 05:57] LABS: BUN/Creatinine Ratio 5.6 (10.0-20.0); Glucose 104 mg/dL (74-106)
[2024-04-28 06:00] LABS: Blood Urea Nitrogen 5 mg/dL (9-23)
[2024-04-28] MEDS: RABIES VACCINE (PCEC)/PF 2.5 UNITS IM ONE (13:48)
[2024-04-28] MEDS ORDERED: AUG875T PO (16:19)
--- NOTE | 2024-04-28 16:19 | DVHDSRES ---
Discharge Summary Date of Admission Resident Creating Document: JANIA FATIMA RESIDENT Apr 26, 2024 at 02:45 Date of Discharge: Apr 28, 2024 Admitting Diagnosis Dog bite Labs/Diagnostic Data: Laboratory Results Test 04/28/24 04:33 04/27/24 13:00 04/26/24 06:00 04/26/24 02:47 White Blood Count 7.4 10^3/uL (4.4-10.8) Red Blood Count 4.13 10^6/uL (4.5-5.90) Hemoglobin 13.1 g/dL (13.5-17.5) Hematocrit 38.4 % (41.0-53.0) Mean Corpuscular Volume 93.0 fL (80.0-100.0) Mean Corpuscular Hemoglobin 31.7 pg (28.0-32.0) Mean Corpuscular Hemoglobin Concent 34.1 g/dL (32.0-36.0) Red Cell Distribution Width 12.8 % (11.8-14.3) Platelet Count 233 10^3/uL (140-450) Mean Platelet Volume 8.7 fL (6.9-10.8) Neutrophils (%) (Auto) 43.2 % (37.0-80.0) Lymphocytes (%) (Auto) 40.8 % (10.0-50.0) Monocytes (%) (Auto) 11.5 % (0.0-12.0) Eosinophils (%) (Auto) 3.9 % (0.0-7.0) Basophils (%) (Auto) 0.6 % (0.0-2.0) Neutrophils # (Auto) 3.2 10 ^3/uL (1.6-8.6) Lymphocytes # (Auto) 3.0 10 ^3/uL (0.4-5.4) Monocytes # (Auto) 0.9 10 ^3/uL (0-1.3) Eosinophils # (Auto) 0.3 10 ^3/uL (0-0.8) Basophils # (Auto) 0 10 ^3/uL (0-0.2) Nucleated Red Blood Cells 0.0 % Sodium Level 139 mmol/L (136-145) Potassium Level 3.9 mmol/L (3.5-5.1) Chloride Level 105 mmol/L (98-107) Carbon Dioxide Level 27 mmol/L (20-31) Anion Gap 7 (5-15) Blood Urea Nitrogen 5 mg/dL (9-23) Creatinine 0.89 mg/dL (0.700-1.30) Glomerular Filtration Rate Calc 118 mL/min (>90) BUN/Creatinine Ratio 5.6 (10.0-20.0) Serum Glucose 104 mg/dL (74-106) Calcium Level 9.5 mg/dL (8.7-10.4) Vancomycin Level Trough 9.6 ug/mL (5-10) Prothrombin Time 11.5 sec (9.3-11.8) Prothrombin Time INR 1.09 (0.9-1.15) Activated Partial Thromboplast Time 27.4 SEC (24.5-34.5) Total Bilirubin 0.9 mg/dL (0.2-1.0) Aspartate Amino Transferase (AST) 21 U/L (13-40) Alanine Aminotransferase (ALT) 14 U/L (7-40) Alkaline Phosphatase 53 U/L (46-116) Total Protein 5.9 g/dL (5.7-8.2) Albumin 3.7 g/dL (3.2-4.8) Urine Color Light-yellow (Yellow) Urine Clarity Turbid (Clear) Urine pH 5.5 (5.0-9.0) Urine Specific [place] 1.019 (1.001-1.035) Urine Protein Negative (Negative) Urine Ketones 1+ (Negative) Urine Blood Negative /uL (Negative) Urine Nitrite Negative (Negative) Urine Bilirubin Negative (Negative) Urine Urobilinogen Normal mg/dL (Negative) Urine Leukocyte Esterase Negative /uL (Negative) Urine RBC <1 /hpf (0 - 3) Urine Microscopic WBC 1 /HPF (0-3) Urine Squamous Epithelial Cells Few /hpf (<5) Urine Uric Acid Crystals Mod /hpf (None Seen) Urine Bacteria None seen /hpf (None Seen) Urine Glucose Normal mg/dL (Normal) Urine Opiates Screen Neg (NEGATIVE) Urine Fentanyl Screen Pos (NEGATIVE) Urine Barbiturates Screen Neg (NEGATIVE) Urine Phencyclidine Screen Neg (NEGATIVE) Urine Amphetamines Screen Pos (NEGATIVE) Urine Benzodiazepines Screen Neg (NEGATIVE) Urine Cocaine Screen Neg (NEGATIVE) Urine Cannabinoids Screen Pos (NEGATIVE) Test 04/26/24 00:45 04/25/24 22:09 04/25/24 16:38 Influenza Type A Antigen Negative (Negative) Influenza Type B Antigen Negative (Negative) SARS-CoV-2 Antigen (Rapid) Negative (NEGATIVE) D-Dimer, Quantitative 0.85 mg/L FEU (0.0-0.49) Lactic Acid Level 0.7 mmol/L (0.4-2.0) Magnesium Level 3.0 mg/dL (1.6-2.6) Thyroid Stimulating Hormone (TSH) 1.30 uIU/mL (0.55-4.78) Other Laboratory Tests 04/28/24 04:33 Brief Hx & Hospital Course: Patient is a 29-year-old male with past medical history of asthma, who came to the ED after being attacked by 5 dogs. According to the patient, yesterday on 04/25/2024 around 3:00 p.m. in the afternoon he got attacked by his neighbor's dogs and sustained animal bite wounds to the left foot, left leg, left hand, left arm and right buttock. CT scan of the foot showed scattered foci of air tracking predominantly along the lateral subcutaneous tissue. Patient was started on IV vancomycin and IV meropenem. Hospital course: Patient was administered rabies vaccination and rabies immune globulin along with the tetanus shot. Left tibia fibula x-ray showed no evidence of acute fracture or dislocation. Soft tissues are unremarkable. The lower extremity CT shows scattered foci of air tracking predominant along the lateral subcutaneous tissue. No fracture dislocation. Left lower extremity MRI was ordered which showed subcutaneous edema and air on dorsal aspect of the foot and lateral malleolus. No evidence of acute osseous abnormality or drainable fluid collection in this unenhanced study. Patient was given IV NS at 120 cc/hour along with IV vancomycin and IV meropenem. Pain was managed with acetaminophen, morphine and Dilaudid. Surgery was also consulted and they recommended no surgical intervention owing to the timing of being over 18 hours and no active bleeding. Wound consult was ordered and daily wound cleaning and management was done. On the day of discharge, patient appeared well and had stable vital signs. Patient also completed physical therapy on the day of discharge and was able to ambulate without much difficulty. Patient was instructed that he needs to get 3rd and 4th vaccination on the 7th and 14 day respectively by visiting the ER. His hospital course was uncomplicated General Appearance: Cooperative. Well developed. Well nourished. NAD Head Exam: Normal inspection Neck Exam: Normal inspection. Non-tender. Normal alignment Pulmonary/Respiratory: Chest non-tender. Clear bilateral breath sounds, no crackles, no wheezing. Cardiovascular/Chest: Regular rate and rhythm. No murmurs. No JVD. Peripheral Pulses: 2+ Radial (R). 2+ Radial (L). 2+ Pedal (R). 2+ Pedal (L) Abdominal Exam: Normal bowel sounds. Soft. normal abdomen, no visible veins, Nontender. No hepatospenomegaly. No masses Lower extremities: Multiple bite wounds noted on the left lower extremity, with the deepest one along the left lateral malleolus and anterior shearer Neuro/Mental Status: A&O x4. Coherent. Thoughts/Psych: Normal thought pattern. Appropriate mood and affect. Good judgement and insight Skin Exam: Normal inspection. Normal color. Warm. Dry Consults/Reason for consult Surgical consult Wound consult Condition at Discharge: Good Final Diagnosis/Problems List Multiple dog bites Left lower extremity cellulitis secondary to animal bite Sepsis due to above Ruled out muscular injury/rupture Polysubstance abuse Discharge Disposition: Home Discharge Instruct/Medications Diet: Regular Activity: No Restrictions, As Tolerated Follow Up/Referral: Please follow up with PCP in 1-2 weeks Please attend the ER on day 7 for your 3rd dose of vaccination (05/02/24) Please attend the ER on day 14 for your 4th dose of vaccination (05/09/24) Medications: Augmentin 875 mg twice a day for 7 days Discharge Statement: "Patient was advised to return to the ER or call 911 if any headaches, dizziness, shortness of breath, chest pain, abdominal pain, bleeding, fevers, or worsening of medical condition. Patient was counseled about treatment plan, medications, possible side effects, patientverbalized understanding. All questions were answered to the best of my ability. This discharge took greater then 30 minutes in planning, reviewing documentation, counseling the patient, and discussing with other team members." ASSESSMENT ASSESSMENT Assessment Date of Service: Apr 28, 2024 Billing Provider: GIOVANNI SAWANT MD Common Visit Codes: [id number] DISCH DAY >30min JANIA FATIMA Apr 28, 2024 16:19 GIOVANNI SAWANT MD Apr 29, 2024 16:05
[2024-04-28] MEDS ORDERED: IBUP1TAB4 PO (19:08)
[2024-04-28] MEDS ORDERED: ACET-1882 PO (19:08)
== END 2024-04-28 19:45 | disposition home or self-care (01) | DRG 720 ==
LOC: ER 16:05 → OVERFLOW 04-26 02:45 → WEST WING 04-27 03:23
PROVIDERS: ADMIT Student in an Organized Health Care Education/Training Program; ATTEND Student in an Organized Health Care Education/Training Program
DX: A41.9 Sepsis, unspecified organism (principal); L03.116 Cellulitis of left lower limb; J45.909 Unspecified asthma, uncomplicated; Z20.822 Contact with and (suspected) exposure to COVID-19; F19.10 Other psychoactive substance abuse, uncomplicated; W54.0XXA Bitten by dog, initial encounter
CPT/HCPCS: 36415; 73590; 73718; 80048; 80053; 80202; 80307; 81001; 83605; 83735; 84443; 85025; 85379; 85610; 85730; 86850; 86900; 86901; 87040; 87205; 87426; 87804; 90377; 90675; 96365; 96372; 96375; 97163; G0378; J2185; J3490

== ENCOUNTER 2024-05-06 09:41 | Emergency (ER) | payer MEDICAID ==
[~2024-05-06] VITALS: Ht 177.8 cm; Wt 61.6 kg
[~2024-05-06 09:41] MED LIST: ACET-1882 PO; AUG875T PO; IBUP1TAB4 PO
[2024-05-06 10:39] VITALS: BP 115/84; PULSE 90; RESP 16; TEMP 98.9; O2SAT 96
--- NOTE | 2024-05-06 11:24 | ED.PDOC ---
History of Present Illness HPI Comments A 29 YEAR OLD MALE PRESENTS TO THE ED WITH COMPLAINT OF REQUEST FOR 3RD DOSE OF RABIES VACCINE. PATIENT STATES HE WAS HERE IN THE ED TODAY FOR HIS 3RD DOSE OF THE RABIES VACCINATION. PATIENT DENIES FEVER, CHILLS, SHORTNESS OF BREATH, CHEST PAIN, ABDOMINAL PAIN, NAUSEA, VOMITING, HEADACHE, OR OTHER COMPLAINTS. NO OTHER SYMPTOMS OR MODIFYING FACTORS AT THIS TIME. PATIENT IS ALERT, ORIENTED X 4, AND HAS STEADY GAIT. Chief Complaint: Animal Bite Time Seen by MD: 10:15 Primary Care Provider: NONE Reviewed Notes: Nurses Notes, Medications, Allergies Allergies: Coded Allergies: NO KNOWN ALLERGIES (Unverified , 04/25/24) Home Meds Active Scripts Ibuprofen Micronized (Ibuprofen) 400 Mg Tab, 400 MG PO Q8HR for 10 Days, #30 TAB Prov:SHAMA MOORE RESIDENT 04/28/24 Acetaminophen (Acetaminophen) 325 Mg Tab, 650 MG PO Q8HR for 10 Days, #60 TAB Prov:SHAMA MOORE RESIDENT 04/28/24 Amoxicillin & Pot Clavulanate (AUGMENTIN TABLET) 875 Mg Tb, 875 MG PO BID for 7 Days, #14 TAB Prov:JANIA FATIMA RESIDENT 04/28/24 Information Source: Patient Mode of Arrival: Ambulatory Severity: None Timing: Days Duration: Intermittent, Days Prehospital treatment: None Medication Refill: For: Other (REQUEST FOR 3RD DOSE OF RABIES VACCINE) Past Medical History PAST MEDICAL HISTORY: Denies Surgical History: Denies all surgeries Family History Family History: Reviewed,noncontributory to illness Social History Smoker: Non-Smoker Alcohol: Denies ETOH Use Drugs: Denies Drug Use Lives In: Home Constitutional: denies: chills, diaphoresis, fatigue, fever, malaise, sweats, weakness, others EENTM: denies: blurred vision, double vision, ear bleeding, ear discharge, ear drainage, ear pain, ear ringing, eye pain, eye redness, hearing loss, mouth pain, mouth swelling, nasal discharge, nose bleeding, nose congestion, nose pain, photophobia, tearing, throat pain, throat swelling, voice changes, others Respiratory: denies: cough, hemoptysis, orthopnea, SOB at rest, shortness of breath, SOB with excertion, stridor, wheezing, others Cardiovascular: denies: chest pain, dizzy spells, diaphoresis, Dyspnea on exertion, edema, irregular heart beat, left arm pain, lightheadedness, palpitations, PND, syncope, others Gastrointestinal: denies: abdomen distended, abdominal pain, blood streaked bowels, constipated, diarrhea, dysphagia, difficulty swallowing, hematemesis, melena, nausea, poor appetite, poor fluid intake, rectal bleeding, rectal pain, vomiting, others Genitourinary: denies: burning, dysuria, flank pain, frequency, hematuria, incontinence, penile discharge, penile sore, pain, testicle pain, testicle swelling, urgency, others Neurological: denies: dizziness, fainting, headache, left sided numbness, left sided weakness, numbness, paresthesia, pre-existing deficit, right sided numbness, right sided weakness, seizure, speech problems, tingling, tremors, weakness, others Musculoskeletal: denies: back pain, gout, joint pain, joint swelling, muscle pain, muscle stiffness, neck pain, others Integumetry: denies: bruises, change in color, change in hair/nails, dryness, laceration, lesions, lumps, rash, wounds, others Allergic/Immunocompromised: denies: Difficulty Healing, Frequent Infections, Hives, Itching, others Hematologic/Lymphatic: denies: anemia, blood clots, easy bleeding, easy bruising, swollen glands, others Endocrine: denies: excessive hunger, excessive sweating, excessive thirst, excessive urination, flushing, intolerance to cold, intolerance to heat, unexplained weight gain, unexplained weight loss, others Psychiatric: denies: anxiety, bipolar disorder, depression, hopeless, panic disorder, schizophrenia, sleepless, suicidal, others All Other Systems: Reviewed and Negative Physical Exam General Appearance: No Apparent Distress, Normal HEENT: Normal ENT Inspection, PERRL/EOMI, Pharynx Normal, TMs Normal Neck: Full Range of Motion, Non-Tender, Normal, Normal Inspection Respiratory: Chest Non-Tender, Lungs Clear, No Accessory Muscle Use, No Respiratory Distress, Normal Breath Sounds Cardiovascular: No Edema, No JVD, No Murmur, No Gallop, Normal Peripheral Pu lses, Regular Rate/Rhythm Breast Exam: Deferred Gastrointestinal: No Organomegaly, Non Tender, No Pulsatile Mass, Normal Bowel Sounds, Soft Genitalia: Deferred Pelvic: Deferred Rectal: Deferred Extremities: No calf tenderness, Normal capillary refill, Normal inspection, Normal range of motion, Non-tender, No pedal edema Musculoskeletal : Apperance: Normal Neurologic: Alert, inside meter tester II-XII nml as Tested, No Motor Deficits, Normal Affect, Normal Mood, No Sensory Deficits Cerebellar Function: Normal Reflexes: Normal Skin: Dry, Normal Color, Warm Peripheral Pulses: 2+ carotid (R), 2+ carotid (L) Lymphatic: No Adenopathy Was a procedure done? Was a procedure done?: No Differential Dx Considerations may include: MEDICATION ADMINISTERED, 3RD DOSE OF RABIES VACCINE X-Ray, Labs, Meds, VS Vital Signs Date Time Temp Pulse Resp B/P (MAP) Pulse Ox O2 Delivery O2 Flow Rate FiO2 05/06/24 10:39 90 16 96 Room Air 05/06/24 10:39 98.9 90 16 115/84 (94) 96 98.9 05/06/24 10:00 98.7 90 16 115/84 (94) 96 Current Medications Medications (Trade) Dose Ordered Sig/Winter Route Start Time Stop Time Status Last Admin Rabies Vaccine (Rabavert) 2.5 units ONCE ONCE IM 05/06/24 11:15 05/06/24 11:16 DC 05/06/24 11:30 X-Ray, Labs, Meds, VS Comment EXTERNAL MEDICAL RECORDS REVIEWED: [NONE] INDEPENDENT HISTORIANS: [NONE] SOCIAL DETERMINANTS OF HEALTH: [NONE] LABS ORDERED: NONE REVIEWED AND INTERPRETED RESULTS: NONE IMAGING ORDERED: NONE TREATMENTS ORDERED: RABIES VACCINE 2.5 UNITS IM PROCEDURES PERFORMED: NONE CRITICAL CARE TIME: NONE I HAVE DISCUSSED THE PATIENT WITH THE ATTENDING PHYSICIAN DR. TALBERT AND HE AGREES WITH THE PATIENT'S PLAN OF CARE AND DISPOSITION. BASED ON HISTORY OF PRESENT ILLNESS, AND PHYSICAL EXAM, PATIENT WILL BE DISCHARGED HOME. SHARED DECISION MAKING: PATIENT INSTRUCTED TO FOLLOW UP WITH PRIMARY CARE PROVIDER IN 1-2 DAYS FOR RE-EVALUATION OF SYMPTOMS. PATIENT VERBALIZES UNDERSTANDING TO RETURN TO ED FOR NEW OR WORSENING SYMPTOMS OR IF FOLLOW UP WITH PCP CANNOT BE OBTAINED. PATIENT FEELS COMFORTABLE GOING HOME AT THIS TIME. ALL QUESTIONS ADDRESSED AT TIME OF DISCHARGE. Time of 1ST Reevaluation: 12:01 Reevaluation 1ST: Improved Patient Education/Counseling: Diagnosis, Treatment, Need For Follow Up Family Education/Counseling: Diagnosis, Treatment, Need For Follow Up Medical Screening: No EMC Exist At This Time Departure 1 Departure Time of Disposition: 12:01 Impression: Primary Impression: Encounter for repeat administration of rabies vaccination Disposition: HOME / SELF CARE / HOMELESS Condition: Stable Additional Instructions: FOLLOW-UP WITH PCP IN 1 TO 2 DAYS. RETURN TO ED FOR ANY NEW OR WORSENING SYMPTOMS. Discharged With: Self Critical Care Note Critical Care Time?: No Stability Stability form required: No I personally scribed for BENSON CALHOUN ([email or web address]) on 05/06/24 at 11:23. Electronically submitted by Levi Montes ([email or web address]). BENSON CALHOUN May 06, 2024 11:23
[2024-05-06] MEDS: RABIES VACCINE (PCEC)/PF 2.5 UNITS IM ONE (11:30)
== END 2024-05-06 11:57 | disposition home or self-care (01) ==
LOC: ER 09:41
DX: S81.852D Open bite, left lower leg, subsequent encounter (principal); Z23 Encounter for immunization; Z79.899 Other long term (current) drug therapy; W54.0XXD Bitten by dog, subsequent encounter
CPT/HCPCS: 90471; 90675